=== PATIENT | female | born 1960 | race Caucasian/White ===

== ENCOUNTER 2018-12-16 06:09 | Emergency (ER) | payer OTHER ==
[~2018-12-16] VITALS: Ht 167.6 cm; Wt 113.4 kg
[~2018-12-16 06:09] MED LIST: ALBUTEROL2.5 MG/0.5 INH; AZITHROMYCIN 2250 MG PO; BLACK COHOSH540 MG PO; CEFDINIR300 MG PO; CELEXA 20 MG TA20 MG PO; FLONASE 0.05%50 MCG NASAL; FLUTICASONE PRO30 G1; GLUCOPHAGE500 MG PO; IBUPROFEN 600600 M1 PO; LANTUS100 UNIT/M SUBQ; LASIX 80 MG TAB80 MG PO; MULTIVITAMINS1 EAC7 PO; NORCO 5-325 TA1 EACH PO; OMEPRAZOLE 20 M20 MG PO; POTASSIUM20 PO; SYMBICORT; SYMBICORT80 MCG/4.1; SYNTHROID125 MCG PO; VENTOLIN HFA 1818 GM INH; VENTOLIN HFA INH8 GM; VIT B; ZOCOR5 MG PO
[2018-12-16 06:53] LABS: ABSOLUTE NEUTROPHILS 6.5 thou/uL (1.4-8.2); BASOPHILS 0.4 % (0.0-2.0); EOSINOPHILS 0.2 % (0.0-3.0); HEMATOCRIT 29.4 % (37.0-47.0); HEMOGLOBIN 9.2 gm/dL (12.0-15.0); LYMPHOCYTES 8.8 % (24.0-44.0); MCH 24.2 pg (26.0-34.0); MCHC 31.3 g/dL (28.0-37.0); MCV 77.2 fL (80.0-100.0); PLATELET COUNT 336 thou/uL (150-400); POLYS 85.6 % (36.0-66.0); RBC 3.81 mil/uL (4.20-5.00); WBC 7.6 thou/uL (4.0-11.0)
[2018-12-16 07:04] LABS: ANION GAP 20 mmol/L (7-16); BUN 20 mg/dL (7-18); CALCIUM 10.1 mg/dL (8.5-10.1); CHLORIDE 101 mmol/L (98-107); CO2 20 mmol/L (21-32); CREATININE 1.4 mg/dL (0.6-1.0); GLUCOSE 210 mg/dL (74-106); POTASSIUM 3.2 mmol/L (3.5-5.1); SODIUM 141 mmol/L (136-145)
[2018-12-16 07:13] LABS: ALBUMIN 4.1 g/dL (3.4-5.0); LIPASE 122 U/L (73-393); SGOT 16 U/L (15-37); SGPT 20 U/L (30-65); TOTAL BILIRUBIN 0.5 mg/dL (<0.1-1.0); TOTAL PROTEIN 7.9 g/dL (6.4-8.2); TROPONIN-I <0.06 ng/mL (<0.06)
[2018-12-16 07:44] LABS: URINE BILIRUBIN NEGATIVE (Negative); URINE BLOOD 1+ (Negative); URINE CLARITY CLEAR; URINE COLOR YELLOW; URINE GLUCOSE-RANDOM* NEGATIVE (Negative); URINE KETONES 1+ (Negative); URINE LEUKOCYTES-REFLEX NEGATIVE (Negative); URINE NITRITE-REFLEX NEGATIVE (Negative); URINE PROTEIN (DIPSTICK) NEGATIVE (Negative); URINE UROBILINOGEN 0.2 E.U./dl (0.2-1.0)
--- NOTE | 2018-12-16 08:25 | EKG ---
[place] [address] [facility] [place] [address] ELECTROCARDIOGRAM REPORT Name: HYUNGENIE SHEYLA Room #: [facility]#: [id number] ������������������ Admission: 12/16/18 ������������������ Attend Phys: Discharge: ������������������ Date of : 56 Report #: [id number] ����������������������������������������������������������������� [id number] THIS REPORT FOR: //name// [facility] ED Test Date: 2018-12-16 Test Time: 06:24:46 Pat Name: GENIE PURVIS Department: Room: Gender: F Lumber Salvager: alida : 1960 Requested By: Praveen Kumar Order Number: [id number] MD: Jerald Coe Measurements Intervals [place] Rate: 68 P: -2 MN: 190 QRS: -6 QRSD: 114 T: 18 QT: 470 QTc: 500 Interpretive Statements Sinus rhythm Probable left ventricular hypertrophy Compared to ECG 04/04/2016 22:35:05 No significant changes Electronically Signed On 12-16-2018 8:25:32 CDT by Jerald Coe [email or web address] ��������������������������������������������� <ELECTRONICALLY SIGNED> ���������������������������������������� By: Jerald Coe MD ��������������������������������������������� 12/16/18 0825 0624 3 Jerald Coe MD /APOLLO
[2018-12-16 08:35] LABS: CASTS None Seen /LPF (None Seen); CRYSTALS None Seen /LPF (None Seen); SQUAMOUS 0-3 Few /LPF (0-3)
[2018-12-16 08:36] LABS: URINE WBC-REFLEX 0-5 Rare /HPF (0-5)
[2018-12-16 08:37] LABS: BACTERIA-REFLEX 1-9 Few /HPF (None Seen); URINE RBC 0-2 Rare /HPF (0-2)
[2018-12-16 09:31] VITALS: BP 197/102
== END 2018-12-16 09:39 | disposition home or self-care (01) ==
LOC: ER 06:09
PROVIDERS: Emergency Medicine
DX: K52.9 Noninfective gastroenteritis and colitis, unspecified (principal); E03.9 Hypothyroidism, unspecified; J42 Unspecified chronic bronchitis; M19.90 Unspecified osteoarthritis, unspecified site; K21.9 Gastro-esophageal reflux disease without esophagitis; E11.9 Type 2 diabetes mellitus without complications; Z85.048 Personal history of other malignant neoplasm of rectum, rectosigmoid junction, and anus; Z87.891 Personal history of nicotine dependence; Z88.0 Allergy status to penicillin

== ENCOUNTER 2020-04-24 18:57 | Emergency (ER) | payer OTHER ==
[~2020-04-24] VITALS: Ht 167.6 cm; Wt 99.8 kg
[2020-04-24 20:11] LABS: ABSOLUTE NEUTROPHILS 9.8 thou/uL (1.4-8.2); BASOPHILS 0.2 % (0.0-2.0); HEMATOCRIT 35.5 % (37.0-47.0); LYMPHOCYTES 7.6 % (24.0-44.0); MCH 29.7 pg (26.0-34.0); MCHC 33.7 g/dL (28.0-37.0); MCV 88.1 fL (80.0-100.0); MONOCYTES 7.1 % (1.0-8.0); PLATELET COUNT 397 thou/uL (150-400); POLYS 85.1 % (36.0-66.0); RBC 4.03 mil/uL (4.20-5.00); WBC 11.5 thou/uL (4.0-11.0)
[2020-04-24 20:27] LABS: ALBUMIN 4.3 g/dL (3.4-5.0); CALCIUM 10.3 mg/dL (8.5-10.1); CREATININE 1.3 mg/dL (0.6-1.0); DIRECT BILIRUBIN 0.1 mg/dL (<0.1-0.2); TOTAL BILIRUBIN 0.7 mg/dL (0.2-1.0); TOTAL PROTEIN 8.6 g/dL (6.4-8.2)
[2020-04-24 20:28] LABS: POTASSIUM 2.8 mmol/L (3.5-5.1)
[2020-04-24 23:44] VITALS: BP 127/59
[2020-04-25] MEDS ORDERED: ZOFRAN ODT4 MG PO (00:17)
== END 2020-04-25 00:24 | disposition home or self-care (01) ==
LOC: ER 18:57
PROVIDERS: Emergency Medicine
DX: R11.2 Nausea with vomiting, unspecified (principal); J44.9 Chronic obstructive pulmonary disease, unspecified; E03.9 Hypothyroidism, unspecified; K21.9 Gastro-esophageal reflux disease without esophagitis; E11.9 Type 2 diabetes mellitus without complications; Z79.4 Long term (current) use of insulin; Z79.899 Other long term (current) drug therapy; Z87.891 Personal history of nicotine dependence; Z88.0 Allergy status to penicillin

== ENCOUNTER 2020-06-02 22:19 | Emergency (ER) | payer OTHER ==
[~2020-06-02] VITALS: Ht 167.6 cm; Wt 97.7 kg
[~2020-06-02 22:19] MED LIST changes: +SYNTHROID125 MC1 PO; -SYNTHROID125 MCG PO; +ZOFRAN ODT4 MG PO
[2020-06-02 22:56] LABS: ABSOLUTE NEUTROPHILS 8.6 thou/uL (1.4-8.2); BASOPHILS 0.3 % (0.0-2.0); HEMATOCRIT 33.3 % (37.0-47.0); HEMOGLOBIN 11.3 gm/dL (12.0-15.0); LYMPHOCYTES 6.9 % (24.0-44.0); MCH 29.8 pg (26.0-34.0); MCV 87.6 fL (80.0-100.0); MONOCYTES 4.4 % (1.0-8.0); PLATELET COUNT 323 thou/uL (150-400); POLYS 88.4 % (36.0-66.0); RDW 13.8 % (10.5-14.5); WBC 9.8 thou/uL (4.0-11.0)
[2020-06-02 23:04] LABS: ANION GAP 18 mmol/L (7-16); BUN 22 mg/dL (7-18); CALCIUM 9.9 mg/dL (8.5-10.1); CHLORIDE 96 mmol/L (98-107); CO2 22 mmol/L (21-32); CREATININE 1.4 mg/dL (0.6-1.0); GLUCOSE 159 mg/dL (74-106); POTASSIUM 3.2 mmol/L (3.5-5.1); SODIUM 136 mmol/L (136-145)
[2020-06-02 23:08] LABS: URINE BILIRUBIN NEGATIVE (Negative); URINE BLOOD NEGATIVE (Negative); URINE CLARITY CLEAR; URINE COLOR YELLOW; URINE GLUCOSE-RANDOM* NEGATIVE (Negative); URINE KETONES 2+ (Negative); URINE LEUKOCYTES-REFLEX NEGATIVE (Negative); URINE NITRITE-REFLEX NEGATIVE (Negative); URINE PROTEIN (DIPSTICK) NEGATIVE (Negative); URINE SPECIFIC GRAVITY 1.015 (1.005-1.035); URINE UROBILINOGEN 0.2 E.U./dl (0.2-1.0)
[2020-06-02 23:15] LABS: LIPASE 151 U/L (73-393); MAGNESIUM 1.5 mg/dL (1.8-2.4); SGOT 19 U/L (15-37); SGPT 14 U/L (30-65); TOTAL BILIRUBIN 0.5 mg/dL (0.2-1.0); TOTAL PROTEIN 8.4 g/dL (6.4-8.2); TROPONIN-I <0.06 ng/mL (<0.06)
[2020-06-02] MEDS ORDERED: HYDROCODON-ACE1 EAC8 PO (23:37)
[2020-06-02] MEDS ORDERED: ALPRAZOLAM 0.0.25 M1 PO (23:38)
[2020-06-02] MEDS ORDERED: SYMBICORT160 MCG/4. INH (23:40)
[2020-06-02] MEDS ORDERED: VENTOLIN HFA 1818 GM INH (23:41)
[2020-06-03 00:32] VITALS: BP 147/86
[2020-06-03] MEDS ORDERED: ONDANSETRON ODT8 MG PO (00:45)
[2020-06-03] MEDS ORDERED: MAG-OXIDE400 MG PO (00:45)
== END 2020-06-03 01:16 | disposition home or self-care (01) ==
LOC: ER 22:19
PROVIDERS: Emergency Medicine
DX: J44.9 Chronic obstructive pulmonary disease, unspecified (principal); E86.0 Dehydration; E03.9 Hypothyroidism, unspecified; K21.9 Gastro-esophageal reflux disease without esophagitis; E11.22 Type 2 diabetes mellitus with diabetic chronic kidney disease; N18.9 Chronic kidney disease, unspecified; Z79.899 Other long term (current) drug therapy; Z88.0 Allergy status to penicillin; Z87.891 Personal history of nicotine dependence; Z20.828 Contact with and (suspected) exposure to other viral communicable diseases

== ENCOUNTER 2020-11-18 21:16 | Inpatient (IN) | payer OTHER ==
[~2020-11-18] VITALS: Ht 167.6 cm; Wt 77.5 kg
[~2020-11-18 21:16] MED LIST changes: +ALPRAZOLAM 0.0.25 M1 PO; +HYDROCODON-ACE1 EAC8 PO; +MAG-OXIDE400 MG PO; +ONDANSETRON ODT8 MG PO; +SYMBICORT160 MCG/4. INH
[2020-11-18 21:18] VITALS: BP 157/94
[2020-11-18 22:20] LABS: ABSOLUTE NEUTROPHILS 8.5 thou/uL (1.4-8.2); BASOPHILS 0.3 % (0.0-2.0); EOSINOPHILS 0.1 % (0.0-3.0); HEMATOCRIT 29.9 % (37.0-47.0); LYMPHOCYTES 9.4 % (24.0-44.0); MCH 29.4 pg (26.0-34.0); MCHC 33.3 g/dL (28.0-37.0); MCV 88.4 fL (80.0-100.0); MONOCYTES 8.1 % (1.0-8.0); PLATELET COUNT 602 thou/uL (150-400); POLYS 82.1 % (36.0-66.0); RBC 3.39 mil/uL (4.20-5.00); RDW 15.2 % (10.5-14.5); WBC 10.3 thou/uL (4.0-11.0)
[2020-11-18 22:43] LABS: ALBUMIN 2.9 g/dL (3.4-5.0); CALCIUM 9.6 mg/dL (8.5-10.1); CREATININE 2.7 mg/dL (0.6-1.0); TOTAL BILIRUBIN 0.5 mg/dL (0.2-1.0); TOTAL PROTEIN 7.5 g/dL (6.4-8.2)
[2020-11-18 22:45] LABS: POTASSIUM 2.5 mmol/L (3.5-5.1)
[2020-11-18 22:45] LABS: URINE BILIRUBIN NEGATIVE (Negative); URINE BLOOD TRACE (Negative); URINE CLARITY CLEAR; URINE COLOR YELLOW; URINE GLUCOSE-RANDOM* NEGATIVE (Negative); URINE KETONES 1+ (Negative); URINE LEUKOCYTES-REFLEX TRACE (Negative); URINE NITRITE-REFLEX NEGATIVE (Negative); URINE PROTEIN (DIPSTICK) TRACE (Negative); URINE UROBILINOGEN 0.2 E.U./dl (0.2-1.0)
[2020-11-19] VITALS (7 sets, daily range): BP systolic 117–164; BP diastolic 69–91
--- NOTE | 2020-11-19 04:57 | NUR ---
Admission history and assessments completed. Careplan initiated. IVfluids infusing. Ice chips given sparingly. Potassium and magnesium being replaced. Vital signs and rhythm stable. COVID negative. Patient straight caths self, daughter to bring in more supplies. Colostomy intact.
--- NOTE | 2020-11-19 07:28 | EKG ---
[address] [place] [address] ELECTROCARDIOGRAM REPORT Name: GENIE PURVIS SHEYLA Room #: 354-P ADM IN M.R.#: [id number] Admission: 11/19/20 Attend Phys: Kobe Taylor MD Discharge: Date of : 56 Report #: [id number] [facility] Test Date: 2020-11-18 Test Time: 23:30:01 Pat Name: GENIE PURVIS Department: Room: 354 Gender: F Nutrition Intern: SOWMYA : 1960 Requested By: Kathi Lynne Order Number: [id number] MD: Chandrakant Tello Measurements Intervals [place] Rate: 105 P: 76 NV: 165 QRS: 15 QRSD: 104 T: 32 QT: 381 QTc: 504 Interpretive Statements Sinus tachycardia Borderline repolarization abnormality Prolonged QT interval Baseline wander in lead(s) V3 Compared to ECG 12/16/2018 06:24:46 Prolonged QT interval now present Sinus rhythm no longer present Electronically Signed On 11-19-2020 7:27:56 CDT by Chandrakant Tello [email or web address] <ELECTRONICALLY SIGNED> By: Chandrakant Tello MD, [facility] 11/19/20 0727 2330 Chandrakant Tello MD, [facility] /EPI
[2020-11-19 08:17] LABS: HEMATOCRIT 24.6 % (37.0-47.0); HEMOGLOBIN 8.1 gm/dL (12.0-15.0); MCH 29.3 pg (26.0-34.0); MCHC 32.8 g/dL (28.0-37.0); MCV 89.3 fL (80.0-100.0); RBC 2.76 mil/uL (4.20-5.00); RDW 15.5 % (10.5-14.5); WBC 9.5 thou/uL (4.0-11.0)
[2020-11-19 08:18] LABS: CALCIUM 8.4 mg/dL (8.5-10.1); CREATININE 2.4 mg/dL (0.6-1.0)
[2020-11-19 08:24] LABS: POTASSIUM 2.6 mmol/L (3.5-5.1)
--- NOTE | 2020-11-19 13:53 | NUR ---
INITIAL ASSESSMENT: Received consult. SW reviewed chart and spoke with nursing and attending physician. Pt was admitted from home due to abdominal pain/hypokalemia. Pt placed in Enhanced Isolation to r/o COVID. Test on 11/18 was negative. Pt is on IV abx. Pt with hx of bladder cancer. Pt straight caths herself at home. SW met with pt at bedside. Introduced role of SW. Pt is alert/orientated x 4. Pt reports she lives at home with her family. Pt states she uses a walker for ambulation. Pt has used HH in the past, but unsure name of provider. No hx of post-acute placement. Pt's PCP is Dr. Brandon Persaud. Plan is for pt to discharge home when medically stable. SW is following to assist as needed with discharge planning.
--- NOTE | 2020-11-19 17:58 | NUR ---
assumed care of pt at 0700. pt alert and oriented, in no acute distress. complains of pain to abd - pain controlled with current med regimen. up w/ walker and sba to br. self caths. dtr at bedside. liquid diet. cdif results positive. special precautions in place. tolerating liquid diet well.
[2020-11-20 03:26] VITALS: BP 136/74
[2020-11-20 05:29] LABS: CALCIUM 7.8 mg/dL (8.5-10.1); CREATININE 2.3 mg/dL (0.6-1.0); POTASSIUM 3.5 mmol/L (3.5-5.1)
[2020-11-20 05:47] LABS: HEMATOCRIT 22.3 % (37.0-47.0); HEMOGLOBIN 7.4 gm/dL (12.0-15.0); MCH 29.6 pg (26.0-34.0); MCV 89.8 fL (80.0-100.0); RBC 2.49 mil/uL (4.20-5.00); RDW 15.2 % (10.5-14.5); WBC 7.3 thou/uL (4.0-11.0)
[2020-11-20 07:39] VITALS: BP 157/94
--- NOTE | 2020-11-20 10:03 | NUR ---
OSTOMY CARE; ALERT.AWAKE, PLEASANT, STATES SHE DID NOT BRING OSTOMY SUPPLIES TO HOSP AND POUCH HAS BEEN ON 5 DAYS, CHANGE APPLIANCE W/ RIDDHI CUT TO FIT POUCH, ADAPT RING UNDER WAFER, STOMA PINK, VIABLE, BUDDED. PERISTOMAL SKIN INTACT, LOOSE BROWN STOOL NOTED, SUPPLIES PLACE AT BS RECOMMENDATIONS; CHANGE POUCH Q 3-5DAYS AND PRN, EMPTY PRN KINDER TEACHER AWARE
--- NOTE | 2020-11-20 16:19 | NUR ---
Pt transfered to unit per bed from [facility] before the beginning of shift in stable condition.Assessment completed.vss. pt in isolation for cdiff. Meds given as ordered and well tolerated with breakfast.Pt c/o buttock pain rated 7/10.Fentanyl ivp given with partial relief.Dr Taylor here,stated that pt will be dc home in am.Ostomy nurse changed ostomy bag today and gave pt some supplies for home use.Pt st cath self as needed in the bathroom.No verbal c/o at present.Will continue to monitor.
[2020-11-20 17:28] VITALS: BP 150/84
[2020-11-20 17:44] VITALS: BP 125/90
[2020-11-20 20:12] VITALS: BP 136/80
--- NOTE | 2020-11-21 04:17 | NUR ---
PT IS A/O X4 AND IS UP AD JUAN, SBA WHILE IV CONNECTED. ROOM AIR. SR/1ST AVB ON THE MONITOR. SELF CATHETERIZES DUE TO HX OF BLADDER CANCER. ASSISTED X1 AT PT REQUEST. CURRENTLY ON C-DIFF ISOLATION. COLOSTOMY IN PLACE AND DRAINING A VERY SMALL AMOUNT OF DARK LOOSE STOOL. C/O PAIN TO BUTTOCKS AND IS REQUESTING PRN PAIN MEDICATIONS ON A REGULAR AROUND THE CLOCK BASIS. GIVEN DIRECTED. IV LEAKING AND HAD ROTATED TO LEFT AC. REMOVED WITH CATHETER INTACT AND REPLACED TO LEFT FA. CALLS OUT APPROPRIATELY AND IS PROGRESSING TOWARDS PLAN OF CARE DC GOALS. WILL CONTINUE TO MONITOR.
[2020-11-21 05:15] VITALS: BP 136/78
[2020-11-21 08:03] VITALS: BP 134/76
[2020-11-21 08:25] VITALS: BP 134/76
--- NOTE | 2020-11-21 11:54 | NUR ---
PT ROUNDS UPDATE: PT HAS CDIFF AND UNCONTROLLED PX. THE PLAN IS FOR PT TO D/C HOME.
[2020-11-21 17:00] VITALS: BP 137/77
--- NOTE | 2020-11-21 18:21 | NUR ---
PT CARE ASSUMED AT 0700. ASSESSMENTS CHARTED. MEDICATIONS CHARTED. LFA IV. SINUS RHYTHM. PT SELF CATHS. ISOLATION; C DIFF. UP AD JUAN. COVID NEGATIVE. PT IS [place] IN RT EAR.
[2020-11-21 20:00] VITALS: BP 155/87
--- NOTE | 2020-11-22 04:49 | NUR ---
Pt. rested quietly at intervals during the night when checked on during frequent rounds. She has been given pain meds for c/o pain to her bottom area (see emar) with some relief noted. Pt. assisted with straight caths as she does this at home. Bed alarm is on.
[2020-11-22 06:18] LABS: HEMOGLOBIN 7.8 gm/dL (12.0-15.0); MCH 29.9 pg (26.0-34.0); MCHC 32.6 g/dL (28.0-37.0); MCV 91.6 fL (80.0-100.0); RBC 2.62 mil/uL (4.20-5.00); RDW 15.5 % (10.5-14.5); WBC 7.3 thou/uL (4.0-11.0)
[2020-11-22 06:40] LABS: CALCIUM 8.4 mg/dL (8.5-10.1); CREATININE 2.4 mg/dL (0.6-1.0); POTASSIUM 3.6 mmol/L (3.5-5.1); TOTAL BILIRUBIN 0.3 mg/dL (0.2-1.0); TOTAL PROTEIN 5.6 g/dL (6.4-8.2)
[2020-11-22 07:19] VITALS: BP 158/77
--- NOTE | 2020-11-22 10:58 | NUR ---
ON-GOING ASSESSMENT: CM REVIEWED CHART AND SPOKE WITH PATIENT. PT IS DISCHARGING HOME TODAY. PT REPORTS SHE Has no NEEDS FROM CM AND HAS ALL EQUIPTMENT AT HOME NEEDED. PT STATES HER AND DAUGHTER CAN HELP HER WITH ANYTHING IF NEEDED AND DOES NOT FEEL SHE NEEDS HH. PT REPORTS SHE WILL HAVE TRANSPORTATION HOME. PT IS DISCHARGING WITH NO NEEDS.
[2020-11-22] MEDS ORDERED: HYDROCODON-ACE1 EAC8 PO (11:25)
[2020-11-22] MEDS ORDERED: VANCOMYCIN HCL125 MG PO (11:25)
[2020-11-22 12:53] VITALS: BP 158/77
[2020-11-22 14:20] VITALS: BP 141/86
--- NOTE | 2020-11-22 16:37 | NUR ---
Received awake on bed. Due medications given as prescribed, able to swallow meds w/o difficulty. On telemetry; no complains and signs of chest pain, crushing sensation and heaviness. Assisted in ADLs. Vital signs stable. On room air.On regular diet- tolerating well; no nausea, no vomiting and no abdominal pain noted. On blood sugar monitoring, taken and recorded accordingly; with sliding scale insulin ordered. With colostomy in place- draining well; output measured and recorded accordingly. With recent diagnosis of bladder cancer- assisted in using straight catheter- output measured and recorded accordingly. With SL at L FA- intact. Complained of pain, due PRN PO pain meds given as prescribed. Falls bundle in place. Pt seen and examined by Dr Taylor this AM, for discharge today, a/w physician to complete discharge orders. Discharge instructions, follow up schedule given and instructed, acknowledged understanding- Discharge forms signed. IV discontinued. Telemetry stopped, monitor returned. Pt fetched by her daughter. Brought out of the unit via wheelchair with her personal belongings. Patient discharged.
== END 2020-11-22 14:00 | disposition home or self-care (01) | DRG 371 ==
LOC: ER 21:16 → 3W 11-19 00:40 → EROBS 11-19 00:40 → 4W 11-19 00:40 → 3W 11-19 01:17 → 4W 11-20 06:33
PROVIDERS: Nurse Practitioner; Nurse Practitioner Family; ADMIT Hospitalist; ATTEND Hospitalist
DX: A04.72 Enterocolitis due to Clostridium difficile, not specified as recurrent (principal); R65.11 Systemic inflammatory response syndrome (SIRS) of non-infectious origin with acute organ dysfunction; N17.0 Acute kidney failure with tubular necrosis; K80.00 Calculus of gallbladder with acute cholecystitis without obstruction; J45.909 Unspecified asthma, uncomplicated; Z20.822 Contact with and (suspected) exposure to COVID-19; E03.9 Hypothyroidism, unspecified; M19.90 Unspecified osteoarthritis, unspecified site; J44.9 Chronic obstructive pulmonary disease, unspecified; K21.9 Gastro-esophageal reflux disease without esophagitis; E11.9 Type 2 diabetes mellitus without complications; F32.9 Major depressive disorder, single episode, unspecified; E87.6 Hypokalemia; Z85.048 Personal history of other malignant neoplasm of rectum, rectosigmoid junction, and anus; Z85.51 Personal history of malignant neoplasm of bladder; Z88.0 Allergy status to penicillin; Z87.891 Personal history of nicotine dependence; Z92.21 Personal history of antineoplastic chemotherapy; Z92.3 Personal history of irradiation; Z93.3 Colostomy status; Z83.79 Family history of other diseases of the digestive system
CPT/HCPCS: 10045; 10879

== ENCOUNTER 2020-12-03 18:14 | Inpatient (IN) | payer OTHER ==
[~2020-12-03] VITALS: Ht 167.6 cm; Wt 77.5 kg
--- NOTE | ~2020-12-03 | O ---
[facility] [place] [address] OPERATIVE REPORT Name: GENIE PURVIS Room #: 458-P ADM IN M.R.#: [id number] Admission: 12/03/20 Attend Phys: Andrea Elena MD Discharge: Date of : 56 Report #: [id number] THIS REPORT FOR: cc: Brandon Persaud MD, Douglas James MD Patterson,eTe Mares MD ~ DATE OF SERVICE: 12/08/2020 PREOPERATIVE DIAGNOSIS: Small-bowel obstruction. POSTOPERATIVE DIAGNOSIS: Small-bowel obstruction. OPERATION: Exploratory laparotomy with small-bowel resection and loop ileostomy. SURGEON: Tee Magallon MD. ANESTHESIA: General. ESTIMATED BLOOD LOSS: 50 mL. SPECIMEN: Small bowel. DESCRIPTION OF PROCEDURE: After informed consent was obtained, the patient was brought to the operating room and placed supine. SCDs were placed and working, preoperative antibiotics were administered, general anesthesia was induced. The abdomen was prepped and draped in the usual sterile fashion. Midline laparotomy incision was made over the previous laparotomy incision. Cautery dissection was made down to the fascia. There had been a previous hernia repair and there was incorporated mesh. Fascia was incised. There was dilated small bowel throughout the abdomen. Almost all of the small bowel was dilated. There was an adhesive band of omentum that was adhered down to the pelvis that was creating a tunnel. This was ligated with the LigaSure. I then ran the small bowel. The small bowel was completely dilated all the way down to the pelvis. It was stuck down to the pelvis. Approximately 50 cm from the cecum, there was an area of nodularity on the small bowel with a 4 mm wide implant in the mesentery. Given her history, I thought this required resection. Therefore, it was stapled distally and proximally. LigaSure was used to ligate the mesentery to take the area of nodularity in the small bowel and the mesenteric nodule. I did not feel it would be safe to dissect down into the pelvis in the irradiated region, which was completely matted and stuck down. I therefore elected to bring out a loop ileostomy. Both of the ends of the small bowel were then brought out through a hole in the right side of the abdomen through the rectus fascia. [address] [address] OPERATIVE REPORT Name: GENIE PURVIS SHEYLA Room #: 458-P [facility] IN .R.#: [id number] Admission: 12/03/20 Attend Phys: Andrea Elena MD Discharge: Date of : 56 Report #: [id number] The fascia was then closed with #1 looped PDS. Skin was closed with eduarda. I then opened up both ends of the small bowel. They were sutured together and then a loop ileostomy was performed using 4-0 Vicryl suture. An ostomy appliance was placed. Sterile dressings were applied. COMPLICATIONS: None. DISPOSITION: The patient was taken to recovery in satisfactory condition. By: 1409 1454 Tee Magallon MD /nt
[~2020-12-03 18:14] MED LIST changes: +VANCOMYCIN HCL125 MG PO
[2020-12-03 18:23] VITALS: BP 143/99
[2020-12-03 19:44] LABS: ABSOLUTE NEUTROPHILS 9.5 thou/uL (1.4-8.2); BASOPHILS 0.3 % (0.0-2.0); EOSINOPHILS 0.6 % (0.0-3.0); HEMATOCRIT 25.6 % (37.0-47.0); HEMOGLOBIN 8.5 gm/dL (12.0-15.0); LYMPHOCYTES 5.6 % (24.0-44.0); MCH 29.8 pg (26.0-34.0); MCHC 33.2 g/dL (28.0-37.0); MCV 89.6 fL (80.0-100.0); MONOCYTES 5.4 % (1.0-8.0); PLATELET COUNT 547 thou/uL (150-400); POLYS 88.1 % (36.0-66.0); RBC 2.85 mil/uL (4.20-5.00); RDW 15.6 % (10.5-14.5); WBC 10.8 thou/uL (4.0-11.0)
[2020-12-03 19:56] LABS: CALCIUM 9.2 mg/dL (8.5-10.1); CREATININE 3.8 mg/dL (0.6-1.0)
[2020-12-03 20:02] LABS: ALBUMIN 2.9 g/dL (3.4-5.0); TOTAL BILIRUBIN 0.4 mg/dL (0.2-1.0); TOTAL PROTEIN 7.4 g/dL (6.4-8.2)
[2020-12-03 21:24] VITALS: BP 126/74
[2020-12-03 22:11] VITALS: BP 135/77
--- NOTE | 2020-12-04 01:19 | NUR ---
Pt admitted from ED approx 2200 with SBO. A/OX4,VSS.Up with A//,has a limp gait on the right side d/t neuropathy. Had an episode of emesis on arrival,brownish in color,c/o pain to abd as well medicated per EMAR with relief reported. NG patent to right nare connected to LIS brownish drainage observed,abd distended but reports feeling much better after the amount suctioned out. Chavez patent to DD with yellow urine,colostomy in place with no output. Reports last BM was a week ago. 2nd IV started on LFA,Mag/KCL/IVF infusing w/o any problems voiced. Fall precautions in place,fall safety reinforced agrees to call for help before getting up. Sinus tachy on telemetry. Will continue to monitor pt.
[2020-12-04 05:20] LABS: HEMATOCRIT 22.6 % (37.0-47.0); HEMOGLOBIN 7.5 gm/dL (12.0-15.0); MCH 29.8 pg (26.0-34.0); MCHC 33.1 g/dL (28.0-37.0); MCV 90.1 fL (80.0-100.0); RBC 2.51 mil/uL (4.20-5.00); RDW 15.9 % (10.5-14.5); WBC 11.7 thou/uL (4.0-11.0)
[2020-12-04 05:42] LABS: CALCIUM 8.5 mg/dL (8.5-10.1); CREATININE 3.6 mg/dL (0.6-1.0); POTASSIUM 3.7 mmol/L (3.5-5.1)
[2020-12-04 05:50] LABS: URINE BILIRUBIN NEGATIVE (Negative); URINE BLOOD 1+ (Negative); URINE CLARITY CLEAR; URINE COLOR YELLOW; URINE GLUCOSE-RANDOM* NEGATIVE (Negative); URINE KETONES NEGATIVE (Negative); URINE NITRITE-REFLEX NEGATIVE (Negative); URINE PROTEIN (DIPSTICK) 1+ (Negative); URINE SPECIFIC GRAVITY 1.015 (1.005-1.035); URINE UROBILINOGEN 0.2 E.U./dl (0.2-1.0)
[2020-12-04 05:56] LABS: URINE LEUKOCYTES-REFLEX 1+ (Negative)
[2020-12-04 06:33] LABS: SQUAMOUS 0-3 Few /LPF (0-3)
[2020-12-04 06:34] LABS: CASTS None Seen /LPF (None Seen); CRYSTALS None Seen /LPF (None Seen); TRANSITIONAL EPITHEL CELL 0-3 Few /LPF (None Seen); URINE RBC 3-10 Few /HPF (0-2); URINE WBC-REFLEX 6-15 Few /HPF (0-5)
[2020-12-04 06:35] LABS: BACTERIA-REFLEX 1-9 Few /HPF (None Seen)
--- NOTE | 2020-12-04 07:04 | EKG ---
[address] [employer] [place] [address] ELECTROCARDIOGRAM REPORT Name: GENIE PURVIS Room #: 458-P ADM IN M.R.#: [id number] Admission: 12/03/20 Attend Phys: Alan Waterman MD Discharge: Date of : 56 Report #: [id number] [facility] ED Test Date: 2020-12-03 Test Time: 19:20:25 Pat Name: GENIE PURVIS Department: Room: [facility] Gender: F Pharmacy Informatics Manager: UNKNOWN : 1960 Requested By: Carlos Negron Order Number: [id number] MD: Chandrakant Tello Measurements Intervals [place] Rate: 106 P: 61 DC: 178 QRS: 0 QRSD: 97 T: 67 QT: 356 QTc: 473 Interpretive Statements Sinus tachycardia Baseline wander in lead(s) V2,V5,V6 Compared to ECG 11/18/2020 23:30:01 Prolonged QT interval no longer present Electronically Signed On 12-04-2020 7:04:07 CDT by Chandrakant Tello [email or web address] <ELECTRONICALLY SIGNED> By: Chandrakant Tello MD, [facility] 12/04/20 0704 19 19 Chandrakant Tello MD, [facility] /EPI
[2020-12-04 07:50] VITALS: BP 125/71
--- NOTE | 2020-12-04 10:27 | NUR ---
OSTOMY CARE; ALERT, PLEASANT, STATES SHE DID NOT BRING OSTOMY SUPPLIES TO HOSP AND NEEDING ASSIST TO CHANGE POUCH, STOMA PINK VIABLE, SLIGHTLY BUDDED, PERISTOMAL SKIN INTACT, LOOSE BROWN STOOL NOTED, NEW POUCH RIDDHI 2 PIECE SYSTEM W/ ADAPT RING APPLIED, SUPPLIES PLACED AT BS RECOMMENDATIONS; CHANGE POUCH Q 3-5 DAYS AND PRN, EMPTY PRN SENIOR WEB DEVELOPER AWARE
--- NOTE | 2020-12-04 11:27 | NUR ---
Case opened to follow for dc planning. Other Spatial Scientist visited with the pt at bedside and chart reviewed. The pt was recently here and dc'd to home with outpt f/u on 11/22/20. She has a new colostomy and reports she was doing well at home until it got obstructed. She lives at home with her spouse and is able to stay on the main level. Her dtr Ginny and son in law live in the basement and are there to help as needed. She has a cane,rwalker and bath bench and notes she is indep with gait,tx and adl's. She denies any dc concerns and feels her mobility is at baseline. Her pcp is Dr. Brandon Persaud. Cm role introduced. Will follow along should HH be indicated at dc. The pt notes she is feeling better and starting to have outpt. The salvage winder and inspector will see her today. Dc anticipated in 1-2 days.
--- NOTE | 2020-12-04 12:35 | NUR ---
Received awake on bed. Due medications given as prescribed, able to swallow meds w/o difficulty. On room air. On MS, not on telemetry; no complains and signs of chest pain, crushing sensation and heaviness. Assisted in ADLs. On nothing per orem- pt informed and aware; pt requested if she can have ice chips during Dr Yeung' rounds this AM- physician agreed- ice chips given to patient. With colostomy in place- output measured and recorded accordingly; pt seen and examined by ostomy nurse this AM- supplies provided at bedside. With NG tube at R nare- secured with tape; connected to LIS- output measured and recorded accordingly; pt seen and examined by Dr Yeung this AM, to clamp NG and check residual every 6 hrs, keep pt on NPO- pt updated. On blood sugar monitoring- taken and recorded accordingly; with sliding scale insulin ordered. Maintained on isolation due to Cdiff. With bloom in place, draining well; output measured and recorded accordingly. With NS at 100cc/hr, infusing well at L FA; with SL at L AC. Able to ambulate with assist of 1- Falls bundle in place. Complained of pain, due PRN pain meds given as prescribed. Pt seen and examined by Dr Elena this AM- updated re: Dr Yeung' plan. To continue monitoring patient.
[2020-12-04 14:43] VITALS: BP 132/78
[2020-12-04 20:11] VITALS: BP 131/80
[2020-12-05 05:13] LABS: HEMATOCRIT 22.1 % (37.0-47.0); HEMOGLOBIN 7.3 gm/dL (12.0-15.0); MCH 29.9 pg (26.0-34.0); MCHC 32.9 g/dL (28.0-37.0); MCV 90.9 fL (80.0-100.0); RBC 2.43 mil/uL (4.20-5.00); WBC 7.7 thou/uL (4.0-11.0)
[2020-12-05 05:49] LABS: CALCIUM 8.4 mg/dL (8.5-10.1); CREATININE 3.3 mg/dL (0.6-1.0); POTASSIUM 3.7 mmol/L (3.5-5.1)
--- NOTE | 2020-12-05 06:40 | NUR ---
AT APPROX. 0020 PT CALLED OUT VIA HER CALL LIGHT. THIS RN WAS HELPING ANOTHER PT SO KRISTIN CHATMAN WENT INTO THE PTS ROOM TO SEE WHAT SHE NEEDED. PT SAID SHE BELIEVED IT WAS TIME FOR MORE PAIN MEDS. THE RN SAID THAT SHE WAS NOT SURE IF IT WAS TIME BUT SHE WOULD LOOK INTO IT. THE PT THEN BECAME UPSET AND REACHED FOR HER PURSE, PULLING OUT MULTIPLE PILL BOTTLES INCLUDING OXYCODONE, HYDROCODONE AND ALPRAZOLAM. THE NURSE REQUESTED THAT THE PT GIVE ALL OF HER DIFFERENT MEDICATIONS TO HER SO THAT SHE COULD STORE THEM SAFELY IN OUR PHARMACY. LURDES THEN CAME TO THIS RN AND EXPLAINED THE EVENTS THAT HAD JUST OCCURED. AT THIS TIME I COLLECTED ALL THE MEDICATIONS AND PLACED THEM IN THE APPROPRIATE HOME MED BAG WHICH I LATER TOOK DOWN TO THE PHARMACY. AT APPROX 0130 THIS RN GOT A PHONE CALL FROM THE PTS DAUGHTER AND DPOAMARIO. SHE HAD RECENTLY RECIEVED A CALL FROM HER MOTHER GENIE. SHE ASKED ME TO EXPLAIN WHAT HAD JUST HAPPENED. I UPDATED HER ON THE SITUATION. MARIO THEN ASKED SEVERAL QUESTIONS ABOUT VISITING HOURS, WHEN SHE COULD SPEAK WITH THE PTS DOCTORS, AND IF SHE WAS ABLE TO RETRIEVE THESE MEDS FROM PHARMACY AND TAKE THEM HOME FOR HER MOTHER. I ADDRESSED ALL CONCERNS TO THE BEST OF MY ABILITY.
[2020-12-05 07:52] VITALS: BP 134/77
--- NOTE | 2020-12-05 16:10 | NUR ---
CARE TEAM INDICATED THAT PT IS PREGRESSING TOWARD GOAL OF DISCHARGE HOME. IT IS ANTICPATED THAT PT WILL LIKELY BE MEDICALLY STABLE TO DC HOME TOMORROW. CM FOLLOWING REGARDING DC NEEDS.
[2020-12-05 17:43] VITALS: BP 110/64
[2020-12-05 19:12] VITALS: BP 130/73
--- NOTE | 2020-12-05 19:17 | NUR ---
ASSUMED CARE OF PATIENT AT 0700 THIS MORNING. PT WAS ADMITTED FOR N/V AND SMALL IMPACTION OF THE BOWEL. PT HAS A COLOSTOMY AND HAS AN INDWELLING CATH DUE TO RETENTION. PT IS A/OX4, SKIN INTACT WITH NO TENTING, STOMA RED AND MOIST, DISTAL PULSES 2+ X4. EYES PERRLA, LUNGS CLEAR WITH LOWER TALAVERA DIMINISHED. 1X ASST TO RECLINER. ASSESSMENT OTHERWISE UNREMARKABLE. PT'S NG TUBE REMAINED CLAMPED WITHOUT ISSUES AND NO RESIDUAL. HCP GAVE ORDERS TO PLACE PT ON CLEAR FLUIDS AND MAY PROGRESS TO REGULAR DIET. PT POSSIBLE DISCHARGE TOMORROW, CALL LIGHT AND OTHER NEEDS PLACED WITHIN REACH.
[2020-12-05] MEDS ORDERED: PERCOCET 10-321 EAC1 PO (19:23)
[2020-12-05] MEDS ORDERED: NORCO7.5 PO (19:25)
--- NOTE | 2020-12-06 06:45 | NUR ---
Pt. rested quietly at intervals during the night when checked on during frequent rounds. She c/o chronic back pain and pain meds given with some relief noted. She also c/o some chest discomfort ecspecially upon deep breathing. No c/o shortness of air. She did have a pain pill (see emar) with some relief noted. Pt. also has been having frequent belching. Bed alarm is on.
[2020-12-06 08:20] VITALS: BP 116/61
[2020-12-06 11:41] LABS: ABSOLUTE NEUTROPHILS 5.2 thou/uL (1.4-8.2); BASOPHILS 0.3 % (0.0-2.0); EOSINOPHILS 0.1 % (0.0-3.0); HEMATOCRIT 22.8 % (37.0-47.0); HEMOGLOBIN 7.7 gm/dL (12.0-15.0); LYMPHOCYTES 8.4 % (24.0-44.0); MCH 30.6 pg (26.0-34.0); MCHC 33.7 g/dL (28.0-37.0); MCV 90.9 fL (80.0-100.0); MONOCYTES 16.4 % (1.0-8.0); PLATELET COUNT 432 thou/uL (150-400); POLYS 74.8 % (36.0-66.0); RDW 16.1 % (10.5-14.5)
[2020-12-06 11:57] VITALS: BP 114/55
[2020-12-06 11:57] LABS: ANION GAP 10 mmol/L (7-16); BUN 27 mg/dL (7-18); CALCIUM 8.1 mg/dL (8.5-10.1); CHLORIDE 103 mmol/L (98-107); CO2 22 mmol/L (21-32); GLUCOSE 124 mg/dL (74-106); POTASSIUM 3.2 mmol/L (3.5-5.1); SODIUM 135 mmol/L (136-145); TROPONIN-I <0.06 ng/mL (<0.06)
--- NOTE | 2020-12-06 13:02 | NUR ---
Received awake on bed. Due medications given as prescribed. On telemetry; no complains and signs of chest pain, crushing sensation and heaviness. On room air. Vital signs stable. On clear liquid diet- tolerating well; no nausea, no vomiting and no abdominal pain noted. On blood sugar monitoring, taken and recorded accordingly. With colostomy in place- output measured and recorded accordingly. With bloom in place- draining well; output measured and recorded accordingly. With NS at 100cc/hr, infusing well at L FA. Falls bundle in place. Pt complained of chest pain during Dr Elena's rounds this AM. EKG, chest xray and blood draw ordered- a/w results; EKG and chest xray results relayed to Dr Elena; no further orders. Complained of pain, due PRN pain meds given as prescribed- pt constantly complaining of meds and requesting to have meds earlier than prescribed- explained to her re: frequency and indication of pain meds. Encouraged ambulation and moving. To continue monitoring patient.
--- NOTE | 2020-12-06 14:53 | EKG ---
[address] [place] [address] ELECTROCARDIOGRAM REPORT Name: GENIE PURVIS SHEYLA Room #: 458- ADM IN M.R.#: [id number] Admission: 12/03/20 Attend Phys: Andrea Elena MD Discharge: Date of : 56 Report #: [id number] [facility] Test Date: 2020-12-06 Test Time: 09:14:41 Pat Name: GENIE PURVIS Department: Room: [facility] Gender: F Fusion Juncture Grinder: LEXII : 1960 Requested By: Andrea Elena Order Number: [id number] MD: Jerald Coe Measurements Intervals [place] Rate: 90 P: 75 GA: 171 QRS: 4 QRSD: 100 T: 39 QT: 384 QTc: 470 Interpretive Statements Sinus rhythm Borderline ST elevation, lateral leads Compared to ECG 12/03/2020 19:20:25 ST (T wave) deviation now present Sinus tachycardia no longer present Electronically Signed On 12-06-2020 14:52:55 CDT by Jerald Coe [email or web address] <ELECTRONICALLY SIGNED> By: Jerald Coe MD 12/06/20 1452 3 3 Jerald Coe MD /EPI
[2020-12-06 15:53] VITALS: BP 115/71
[2020-12-06 19:19] VITALS: BP 118/67
--- NOTE | 2020-12-07 03:09 | NUR ---
Pt. rested quietly at intervals during the night when checked on during frequent rounds. She did have a moderate amount of green colored emesis during the shift. Prn ivp zofran given with relief. She c/o back pain and pain meds given (see emar) with some relief noted. Bed alarm is on.
[2020-12-07 05:36] LABS: HEMATOCRIT 22.9 % (37.0-47.0); HEMOGLOBIN 7.5 gm/dL (12.0-15.0); MCH 29.5 pg (26.0-34.0); MCHC 32.6 g/dL (28.0-37.0); MCV 90.2 fL (80.0-100.0); RBC 2.54 mil/uL (4.20-5.00); RDW 15.9 % (10.5-14.5); WBC 7.4 thou/uL (4.0-11.0)
[2020-12-07 06:10] LABS: CALCIUM 8.2 mg/dL (8.5-10.1); CREATININE 2.8 mg/dL (0.6-1.0); POTASSIUM 3.3 mmol/L (3.5-5.1)
[2020-12-07 07:14] VITALS: BP 138/90
--- NOTE | 2020-12-07 11:23 | NUR ---
Received awake on bed. Due medications given as prescribed. On telemetry; no complains and signs of chest pain, crushing sensation and heaviness. Assisted in ADLs. On room air. Vital signs stable. On full liquid diet- tolerating well; Dr Elena informed that pt is tolerating diet, to review med rec and order which meds to resume. With colostomy in place- output measured and recorded accordingly; ostomy care provided. With bloom in place- output measured and recorded accordingly. With NS at 100cc/hr, infusing well at L FA. Complained of pain, due PRN pain meds given as prescribed. Pt reported that she vomitted last night approx 200cc- Dr Elena and Dr Magallon informed. To continue monitoring patient.
[2020-12-07 16:18] VITALS: BP 120/77
[2020-12-07 20:00] VITALS: BP 115/68
--- NOTE | 2020-12-08 08:33 | NUR ---
PT LYING IN BED. LORTAB AND OXY PROVIDING PAIN RELIEF. DENIES NAUSEA. RESTING COMFORTABLY. NO NEEDS VOICED. CALL LIGHT WITHIN REACH. FREQUENT OBSERVATION.
[2020-12-08 09:14] VITALS: BP 128/81
[2020-12-08 17:05] VITALS: BP 147/90
--- NOTE | 2020-12-08 20:18 | NUR ---
Assumed pt care this am, NPO, w/ NGT tune on left nare connected to a suction (low intermittent) draining dark green fluid. Colostomy on LLQ w/ light brown stool. No nausea or vomiting is noted. Went down for explore lap, came back late in the pm, mid line incision, dressing is c/d/i. right ileostomy was placed. Pt groggy but arousable. POC followed, endorsed to the night nurse.
--- NOTE | 2020-12-09 01:13 | NUR ---
ASSESSMENT COMPLETED. ALERT AND ORIENTED X 4. NG TO LIS ON LEFT NARE. PT GIVEN SOME HS MEDS WITH SMALL SIPS OF WATER-AFTER NG WAS CLAMPED. PT DENIES NAUSEA OR VOMITING, TAKING SMALL CHIPS OF ICE. PT GIVEN FENTANYL X1 FOR BREAKTHROUGH PAIN RIGHT ABOUT THE TIME SHE GOT HS MEDS. PAIN RELIEF OBTAINED.ORAL CARE PROVIDED COLOSTOMY WITH GREEN LIQUID OUTPUT, ILEOSTOMY WITH NO OUTPUT. TRACE EDEAM TO BLE, SCDS IN PLACE.MID ABDOMINAL DRSG WITH POST OP DRSG INTACT. NO FUERTHER CONCERNS AT THIS TIME. WILL CONTINUE WITH POC TILL EOS.
[2020-12-09 06:09] LABS: HEMOGLOBIN 8.9 gm/dL (12.0-15.0); MCHC 31.6 g/dL (28.0-37.0); MCV 91.9 fL (80.0-100.0); RBC 3.05 mil/uL (4.20-5.00); RDW 15.9 % (10.5-14.5); WBC 15.8 thou/uL (4.0-11.0)
[2020-12-09 06:38] LABS: CALCIUM 8.4 mg/dL (8.5-10.1); CREATININE 2.6 mg/dL (0.6-1.0); POTASSIUM 3.6 mmol/L (3.5-5.1)
[2020-12-09 08:05] VITALS: BP 142/81
--- NOTE | 2020-12-09 11:40 | NUR ---
PT IS POD #1 exploratory laparotomy with small bowel resection and loop ileostomy. Care team indicated they anticipate DC Chavez in next 1-2 days NG for now, wait until ileostomy working. They indicated that pt may need TPN in next 2-3 days if diet is not started by then. Pt and Ot re-ordered to eval. It had been anticpated that pt would be able to dc home to self care once medically stable. Cm following regarding possible dc needs.
[2020-12-09 16:20] VITALS: BP 150/89
[2020-12-09 19:26] VITALS: BP 150/85
--- NOTE | 2020-12-09 20:01 | NUR ---
Assumed pt care this am, VS signs stable. Colostomy bag draiing grenn fluid, colostomy appliance changed, ileostomy has no drainiage. Surgical incision site with eduarda c/d/i. FC in place draining yellow urine, NGT in place connect to low int suction with a significant out put. Pain is managed with medications, POC followed, mainatained NPO with some ice chips. SCD's on, Endorsed to the cloth washer operator.
--- NOTE | 2020-12-10 03:33 | NUR ---
PT IS A/O X3 WITH SOME FORGETFULNESS. ROOM AIR. SR/ST ON THE MONITOR. NG IN PLACE AND IS HOOKED UP TO INTERMITTENT SUCTION. VILLALBA IN PLACE AND DRAINNG YELLOW URINE. COLOSTOMY IN PLACE DRAINING DARK LIQUID STOOL. VSS. AFEBRILE. FALL PRECAUTIONS IN PLACE, CALL LIGHT IS WITHIN REACH
[2020-12-10 07:23] LABS: HEMATOCRIT 23.2 % (37.0-47.0); HEMOGLOBIN 7.4 gm/dL (12.0-15.0); MCH 28.8 pg (26.0-34.0); MCHC 31.9 g/dL (28.0-37.0); MCV 90.2 fL (80.0-100.0); RBC 2.57 mil/uL (4.20-5.00); RDW 16.3 % (10.5-14.5); WBC 13.1 thou/uL (4.0-11.0)
[2020-12-10 07:35] LABS: CALCIUM 8.9 mg/dL (8.5-10.1); CREATININE 2.4 mg/dL (0.6-1.0); POTASSIUM 3.2 mmol/L (3.5-5.1)
--- NOTE | 2020-12-10 11:11 | NUR ---
OSTOMY CARE; COLOSTOMY POUCH L SIDE ABD INTACT, NO OUTPUT, ILEOSTOMY STOMA R SIDE ABD RED VIABLE BUDDED W/ FAIRLY LARGE AMT LIQ BILISH STOOL, POUCH OPENING CUT TOO LARGE THEREFORE CHANGED TO CORRECT SIZE USING 2 PIECE RIDDHI CUT TO FIT APPLIANCE, ALERT, PLEASANT, COOPERATIVE, OSTOMY SUPPLIES LEFT AT BS, WILL CONT TO FOLLOW RECOMMENDATIONS; RIDDHI 2 PIECE CUT TO FIT TO ILEOSTOMY STOMA, ADAPT RING UNDER WAFER, RIDDHI ONE PIECE POUCH TO COLOSTOMY STOMA, CHANGE Q 3-5 DAYS AND PRN HEAD SUGAR REPROCESS OPERATOR AWARE COLOSTOMY, CHANGE Q 3-5 DAYS AND PN
--- NOTE | 2020-12-10 14:33 | NUR ---
PT STILL WITH NG IN PLACE WITH NEW ILIOSTOMY. PT AND OT WORKING WITH PT AND INDICATING THAT PT MAY BENEFIT FROM POST ACUTE CARE STAY. 5N CONSULTED. CM ATTEMPTED TO VISIT WITH PT AT BEDSIDE TO DISCUSS THIS BUT SHE FELL ASLEEP ON ME. CM CALLED AND SPOKE WITH PT'S SPOUSE. HE INDICATED HE WOULD BE RECEPTIVE TO CONSULT. CM FOLLOWING REGARDING DC PLANNING.
[2020-12-10 15:43] VITALS: BP 162/85
--- NOTE | 2020-12-10 19:53 | NUR ---
PT HAD 30 ML RESIDUAL FROM THE NG TUBE ALL DAY. PT NG TUBE OUT AND PUT ON CLEAR LIQUID DIET PER . PT WAS GIVEN HYDROCODONE FOR PAIN AROUND 1700. RIGHT ILEOSTOMY HAS OUTPUT AND NO OUTPUT FROM LEFT COLOSTOMY. CONTINUE TO MONITOR.
[2020-12-10 20:00] VITALS: BP 117/71
--- NOTE | 2020-12-11 06:07 | NUR ---
Assumed pt care at 1900. A/OX3,forgetful but able to make needs known. VSS. Navid in place on mid lower abd incision,ileostomy in place on RLQ with greenish output and a colostomy on LLQ with no output. Chavez patent to DD with yellow urine. No c/o N/V this shift. C/o pain to abd medicated per EMAR,with relief noted. Telemetry dc'd. Fall precautions in place,calls approp for help.
[2020-12-11 07:38] VITALS: BP 132/71
--- NOTE | 2020-12-11 13:52 | NUR ---
CARE TEAM INDICATED THAT PT IS PROGRESSING SLOWLY. PT AND OT WORKING WITH PT. 5N FOLLOWING. CM TO FOLLOW INDICATED WITH DC PLANNING.
--- NOTE | 2020-12-11 16:06 | PATH ---
[facility] [address] [place] [address] PATHOLOGY RPT PROCEDURE Name: KATHRINE HERMAN Room #: 458-P ADM IN M.R.#: [id number] Admission: 12/03/20 Date of : 56 Discharge: Report #: [id number] Path Case #: [id number] [facility] Accession Number: [id number] . 01 Material submitted: . small bowel - SEGMENT OF SMALL BOWEL HISTORY RECTAL CANCER . 01 Clinical history: . SMALL BOWEL OBSTRUCTION . 02 Diagnosis: Small bowel, segment of small bowel history of rectal cancer, resection: - METASTATIC POORLY DIFFERENTIATED SQUAMOUS CELL CARCINOMA INVADING FROM THE SEROSAL SURFACE TO THE MUCOSAL SURFACE MEASURING 2.3 CM IN GREATEST DIMENSION. - ADDITIONAL SEPARATE FOCUS OF METASTATIC POORLY DIFFERENTIATED SQUAMOUS CELL CARCINOMA MEASURING 0.7 CM IN GREATEST DIMENSION. - EXTENSIVE LYMPHVASCULAR SPACE INVASION PRESENT. - PERINEURAL INVASION PRESENT. - Margins of resection free of malignancy. - Lymph nodes showing reactive changes without any evidence of malignancy (0/8). . (IUV:julio c; 12/11/2020) QMS 12/11/2020 1257 Local . 02 Comment: Examination shows a poorly differentiated epithelioid malignancy extending from the mucosal surface to the visceral serosal surface. Extensive lymphvascular space invasion is identified within this neoplasm. Multiple properly controlled immunohistochemical stains are performed on block A6 in keeping with the provided history of rectal cancer. The tumor shows strong nuclear reactivity with p63 and strong diffuse reactivity with p16. Ki-67 shows 60% proliferative activity. The nonreactive immunohistochemical stains included CK7, CK20, synaptophysin as well as chromogranin. Special stain mucicarmine stain is performed as well on block A6 and it is negative. . Dr. Larry Paredes has seen a risk control representative slide of this case (block A6) and concurs with my diagnosis. (IUV:julio c; 12/11/2020) . 02 Electronically signed: . Vanesa Leigh MD, Pathologist NPI- [id number] . 01 Gross description: . [address] [address] PATHOLOGY RPT PROCEDURE Name: KATHRINE HERMAN Room #: 458-P [facility] IN [facility].#: [id number] Admission: 12/03/20 Date of : 56 Discharge: Report #: [id number] Path Case #: [id number] The specimen is received in formalin, labeled "Kathrine Herman, segment of small bowel, history of rectal cancer". Received is an unoriented segment of small bowel measuring 14.8 cm in length and ranges in diameter from 2.1-4.1 cm. Both margins are stapled closed. The serosal surface is pink-cruz in appearance with two serosal lesions identified, displaying a white-cruz appearance, measuring 0.7 x 0.4 and 2.2 x 0.5 cm. The smaller lesion is 5.4 cm from the closest margin and the second lesion is 8.3 cm from the closest margin. The smaller lesion is inked black and the larger lesion is inked blue. The remainder of the serosal surface is pink-lazo in appearance. The attached mesenteric fat measures up to 3.7 cm in thickness. Sectioning through the smaller lesion reveals no gross extension through the serosal wall into the mucosa. The specimen is opened along the antimesenteric line to reveal a pink-lazo, focally ulcerated mass, at the location of the second described serosal lesion, measuring 2.3 x 1.5 cm, which is 7.4 cm from the closest margin. Sectioning reveals the mass to grossly extend through the muscularis enterica and grossly abuts the inked serosal surface. This mass is 5.4 cm from the mesenteric margin. Dissection and palpation of the attached pericolic fat reveals six possible lymph node candidates ranging in size from 0.2-0.4 cm in maximum dimensions. The mesenteric fat is placed into a lymph node enhancement solution. The specimen is submitted representatively as follows: . A1 margin closest to first lesion, en face A2 opposite margin, en face A3 lesion 1, bisected (black ink) A4-A7 lesion 2, serially sectioned (blue ink) A8 uninvolved mucosa between closest margin and both lesions A9 uninvolved between furthest margin and both lesions A10 intact possible lymph node candidates. . After exposure to a lymph node enhancement solution, two additional possible lymph nodes are identified measuring 0.2 cm each. The possible lymph nodes are submitted in cassette A11. Performance Improvement Manager sections of lymphovascular bundles are submitted in cassettes A12 through A15. (CAA; 12/09/2020) QAC/QAC 12/09/2020 1715 Local . 02 Pathologist provided ICD-10: C20 . 02 CPT . 732946, J68126, R95114, 610972, 301332 Specimen Comment: A courtesy copy of this report has been sent to [phone] Specimen Comment: Report sent to Performed at: [address] [facility] [place] [address] [facility] [address], [place], [place] [id number] [facility] [address] [place] [address] PATHOLOGY RPT PROCEDURE Name: KATHRINE HERMAN Room #: 458-P ADM IN M.R.#: [id number] Admission: 12/03/20 Date of : 56 Discharge: Report #: [id number] Path Case #: [id number] MD Michael Varma MD Phone: [phone] Performed at: [address] [id number] MD Vanesa Leigh MD Phone: [phone]
[2020-12-11 19:23] VITALS: BP 137/82
--- NOTE | 2020-12-11 19:59 | NUR ---
Assumed pt care this am vs stable stayed on the recliner for most of the afternoon. Ileostomy on the LLQ abd colostomy on the RLQ (draining green fluid) FC in place draining yellow urine. Pain is managed with medications partial relief is noted. Worked with PT and OT, still weak and unsteady. Son came to visit. POC followed, endorsed to the night nurse.
[2020-12-12 08:00] VITALS: BP 123/83
--- NOTE | 2020-12-12 08:08 | NUR ---
OSTOMY CARE; AWAKE BUT FORGETFUL, SLIGHTLY CONFUSED, COULD NOT REMEMBER IF SHE ATE OR DRANK ANYTHIN YESTERDAY, COULD NOT REMEMBER IF SHE STILL HAS OSTOMY SUPPLIES AT HOME, CHANGED POUCH TO ILEOSTOMY R SIDE ABD, STOMA PINKISH/RED, VIABLE, BUDDED, PERISTOMAL SKIN INTACT, LOOSE BROWN STOOL NOTED, 2 PIECE CUT TO FIT RIDDHI POUCH APPLIED W/ ADAPT RING, COLOSTOMY STOMA L SIDE ABD W/OUT STOOL, RIDDHI ONE PIECE POUCH APPLIED, INFORMED PT OF USE OF STOMA CAP TO OLD COLOSTOMY SITE IF NO MUCOUS OR STOOL PRESENT, FAIR UNDERSTANDING, SUPPLIES LEFT AT BS, ALSO REVIEWED DIET LOW FIBER DUE TO ILEOSTOMY, SMALLER MORE FREQ MEALS, SUPPLIES PLACED AT BS, WILL CONT TO FOLLOW RECOMMENDATIONS; 2 PIECE RIDDHI CUT TO FIT POUCH TO ILEOSTOMY, ONE PIECE RIDDHI TO OLD COLOSTOMY STOMA, CHANGE Q 3-5 DAYS AND PRN, EMPTY PRN GOVERNMENT PROGRAM MANAGER AWARE
--- NOTE | 2020-12-12 14:43 | NUR ---
Rashad ASSESSED PT AND INDICATED THAT SHE WOULD BE A GOOD CANDIDATE FOR ACUTE REAHB ONCE MEDICALLY STABLE. CARE TEAM INDICATED THAT PT MAY BE MEDICALLY STABLE TO DC TOMORROW. 5N CAN ACCEPT. CM CALLED NOTIFIED PT'S OF THIS AND HE IS AWARE AND AGREEABLE WELL. CM FOLLOWING REGARDING DC PLANNING.
--- NOTE | 2020-12-12 15:32 | NUR ---
BUSINESS OFFICE TECHNOLOGY INSTRUCTOR ATTEMPTED TO SEE PATIENT FOR COGNITIVE THERAPY THIS DATE; HOWEVER PATIENT DECLINED. ST WILL ATTEMPT TO SEE PATIENT TOMORROW, 12/13/2020. THANK YOU.
[2020-12-12 16:45] VITALS: BP 141/85
--- NOTE | 2020-12-12 16:54 | NUR ---
Assumed pt care at 7am.Pt in bed resting and waiting for breakfast.Assessment completed.vss.Pt c/o generalized pain and oral pain med given with partial relief.Therapist transfered pt to chair aftr breakfast and reported that pt was unable to participate due to too much pain med in her system.Pt was up in chair for over 2hours today.Pt later transfered back to bed with max assist at after lunch.Iv pain med given per pt request.Ostomy bag emptied x2 today.Will continue to monitor.
[2020-12-12 20:03] VITALS: BP 140/76
[2020-12-13 05:18] LABS: HEMATOCRIT 22.5 % (37.0-47.0); HEMOGLOBIN 7.4 gm/dL (12.0-15.0); MCH 29.2 pg (26.0-34.0); MCHC 32.8 g/dL (28.0-37.0); MCV 89.2 fL (80.0-100.0); RBC 2.52 mil/uL (4.20-5.00); RDW 16.4 % (10.5-14.5); WBC 9.9 thou/uL (4.0-11.0)
[2020-12-13 05:23] LABS: CALCIUM 7.7 mg/dL (8.5-10.1)
--- NOTE | 2020-12-13 05:24 | NUR ---
ASSUMED CAER OF PT AT SHIFT CHANGE. PT IS AOX2-3 AND LETS NEEDS BE KNOWN. FALL PRECAUTION IN PLACE. PT REPORTED PAIN AND WAS TREATED WITH PRN PAIN MEDS. ILEOSTOMY LEAKING AND WAS REPLACED. IVF CONTINUED. PT WAS ABLE TO GET COMFORTABLE ND SLEEP PART OF THE SHIFT. VSS AND NO S/S OF ACUTE DISTRESS. WILL CONTINUE TO MONITOR.
[2020-12-13 05:27] LABS: POTASSIUM 2.6 mmol/L (3.5-5.1)
[2020-12-13 07:50] VITALS: BP 126/71
[2020-12-13] MEDS ORDERED: HYDROCODON-ACE1 EAC7 PO (13:37)
--- NOTE | 2020-12-13 13:58 | NUR ---
CARE TEAM INDICATED THAT PT IS MEDCIALLY STABLE TO DC TO [facility] ACUTE INPATIENT REHAB THIS DAY. CM SPOKE WITH PT AND SHE IS AWARE AND AGREEABLE. CM HAD NOTIFIED HER SPOUSE YESTERDAY AND HE IS ALSO AWARE AND AGREEABLE. PT TO DC TO 5N THIS DAY. NURSE TO CALL REPORT TO . NO OTHER CM INTERVENTION INDICATED. CASE CLOSED.
== END 2020-12-13 15:55 | DRG 329 ==
LOC: ER 18:14 → 4W 21:20 → EROBS 21:20 → 4W 21:58
PROVIDERS: Emergency Medicine; Nurse Practitioner Family; Surgery; ADMIT Hospitalist; ATTEND Hospitalist
PROC: 0D9670Z Drainage of Stomach with Drainage Device, Via Natural or Artificial Opening (ICD-10-PCS; principal; 2020-12-03)
PROC: 0DB80ZZ Excision of Small Intestine, Open Approach (ICD-10-PCS; 2020-12-08)
PROC: 0D1B0Z4 Bypass Ileum to Cutaneous, Open Approach (ICD-10-PCS; 2020-12-08)
DX: K56.609 Unspecified intestinal obstruction, unspecified as to partial versus complete obstruction (principal); N17.0 Acute kidney failure with tubular necrosis; G93.40 Encephalopathy, unspecified; E03.9 Hypothyroidism, unspecified; J45.909 Unspecified asthma, uncomplicated; F32.9 Major depressive disorder, single episode, unspecified; Z20.822 Contact with and (suspected) exposure to COVID-19; K21.9 Gastro-esophageal reflux disease without esophagitis; M19.90 Unspecified osteoarthritis, unspecified site; D64.9 Anemia, unspecified; E87.6 Hypokalemia; E11.42 Type 2 diabetes mellitus with diabetic polyneuropathy; R53.81 Other malaise; Z85.048 Personal history of other malignant neoplasm of rectum, rectosigmoid junction, and anus; Z85.51 Personal history of malignant neoplasm of bladder; Z88.0 Allergy status to penicillin; Z87.891 Personal history of nicotine dependence; Z92.21 Personal history of antineoplastic chemotherapy; Z92.3 Personal history of irradiation; Z90.49 Acquired absence of other specified parts of digestive tract
CPT/HCPCS: 10045; 10047; 50093; 50101; 50386; 51412; 51708; 51712; 56526; 56527; 57092; 62110; 62900; 70005

== ENCOUNTER 2020-12-13 13:16 | Inpatient (IN) | payer OTHER ==
[~2020-12-13] VITALS: Ht 167.6 cm; Wt 83.2 kg
--- NOTE | ~2020-12-13 | D ---
[facility] [place] [address] [address] [place] [address] DISCHARGE SUMMARY Name: GENIE PURVIS Room #: 504-1 [facility] IN M.R.#: [id number] Admission: 12/13/20 Attend Phys: Carlos Sam MD Discharge: 12/15/20 Date of : 56 Report #: [id number] THIS REPORT FOR: cc: Brandon Persaud MD, Douglas James MD [place],Carlos Sequeira MD ~ DATE OF SERVICE: 12/15/2020 The patient is a 60-year-old white female who had the exploratory laparotomy with small bowel resection and ileostomy. Postop, she had a toxic metabolic encephalopathy. She has a prior history of rectal cancer in 2019. Please see the full admission history and physical from 12/14/2020. HOSPITAL COURSE: I was notified by nursing this morning that the patient had left last evening against medical advice. Please see the nursing event note which helps explain the circumstances regarding the AMA discharge. The daughter took the patient home and there are plans are already in place to see a urologist and she will be making a followup appointment with the surgeon as the patient still has eduarda in place. Ostomy ____ were taken with the daughter and the daughter indicated she was comfortable with the ostomy. Noted that nursing shop supervisor was involved as well. DISCHARGE DIAGNOSES: 1. Toxic metabolic encephalopathy. 2. Right lower extremity weakness, distal more than proximal with right foot drop. This appeared to be premorbid. 3. Medical complexity with generalized debilitation. 4. Recurrent small-bowel obstruction, status post exploratory laparotomy with small bowel resection and ileostomy, 12/08/2020. 5. Acute renal insufficiency superimposed on chronic kidney disease. 6. Electrolyte abnormalities. 7. Chronic anemia. 8. Diabetes mellitus type 2. 9. History of bladder and rectal cancer. 10. Chronic obstructive pulmonary disease. 11. Gastroesophageal reflux disease. By: [id number] Carlos Sam MD /nt
--- NOTE | ~2020-12-13 | H ---
[facility] [place] [address] [address] HISTORY AND PHYSICAL Name: GENIE PURVIS Room #: 504-1 ADM IN M.R.#: [id number] Admission: 12/13/20 Attend Phys: Carlos Sam MD Discharge: Date of : 56 Report #: [id number] THIS REPORT FOR: cc: Brandon Persaud MD, Douglas James MD [place],Carlos Sequeira MD ~ DATE OF SERVICE: 12/13/2020 HISTORY OF PRESENT ILLNESS: The patient is a 60-year-old female, who was admitted for acute in-hospital inpatient rehabilitation. The patient had been initially admitted to [facility] on 12/03/2020 with complaints of nausea, vomiting and no output from her colostomy since discharged home from the hospital on 11/22/2020. She was diagnosed with C. diff on that admission. She was found to have recurrent small-bowel obstruction. General Surgery was consulted. She was kept n.p.o. and an NG tube was placed. She had low potassium and on replacement via IV. She also was noted to have acute renal insufficiency with an initial creatinine up to 3.8 with her baseline in the mid 1's. She was given IV fluids. On 12/08/2020, she underwent exploratory laparotomy with small bowel resection and ileostomy. Postop, she was noted to have confusion, disorientation, noted to have toxic metabolic encephalopathy. She has gradually improved and felt to be ready for transfer for acute in-hospital inpatient rehabilitation. PAST MEDICAL HISTORY: Includes some right lower extremity distal weakness with foot drop, which she notes is consistent with her peripheral neuropathy. She was needing to utilize a cane as well as having a walker at home. Past history also includes rectal cancer in 2019, chronic bronchitis, asthma, osteoarthritis, COPD, controlled GERD, type 2 diabetes, bladder cancer, and renal insufficiency. MEDICATIONS: Please see the full medication listing. ALLERGIES: PENICILLIN. SOCIAL HISTORY: She was living at home with her and her daughter and son-in-law live in the basement. She again has a cane and a walker at home. She was independent with ADLs, family provided IADLs. She was on disability. REVIEW OF SYSTEMS: No current complaints of chest pain, shortness of breath or abdominal discomfort. PHYSICAL EXAMINATION: GENERAL: The patient was seen on 12/13/2020. She was in no distress. VITAL SIGNS: Last recorded temperature 36.8, pulse 84, respirations 20, blood pressure 144/82. She was pleasant, definite delay in her responses, would follow one-step commands. She has decreased memory. [address] [address] HISTORY AND PHYSICAL Name: GENIE PURVIS Room #: [facility] IN M.R.#: [id number] Admission: 12/13/20 Attend Phys: Carlos Sam MD Discharge: Date of : 56 Report #: [id number] HEENT: Facies appeared to be symmetric. CHEST: Sounded clear to auscultation. CARDIAC: Regular rate and rhythm. ABDOMEN: She has ostomy in place. Obese. Bowel sounds positive. She has an indwelling Chavez catheter. NEUROMUSCULOSKELETAL: She has functional range of motion of both upper extremities with strength of grade 4-/5. In the lower extremities, she has weakness of the right ankle with an apparent foot drop and decreased sensation in a stocking distribution. She has some decreased sensation of the left lower extremity as well on large toe proprioception, but has at least a grade 4- strength of the left ankle in dorsiflexion on the left. Proximal strength is probably a grade 4-/5 to 3+/5. Functionally, she has been mod assist [id number] and ambulate a short distance mod assist. She tends to drag the right foot. It does not appear that she has an AFO or any brace to the right ankle. Again, she is a rather marginal historian. ASSESSMENT: A 60-year-old female with the following problem list: 1. Toxic metabolic encephalopathy. 2. Right lower extremity weakness, distal more than proximal with right foot drop. It appears to be premorbid. 3. Medical complexity with generalized debilitation. 4. Recurrent small-bowel obstruction, status post exploratory laparotomy with small bowel resection and ileostomy on 12/08/2020. 5. Acute renal insufficiency superimposed on chronic kidney disease. 6. Electrolyte abnormalities. 7. Chronic anemia. 8. Diabetes mellitus type 2. 9. History of bladder and rectal cancer. 10. Chronic obstructive pulmonary disease. 11. Gastroesophageal reflux disease. PLAN: The patient has been admitted for acute in-hospital inpatient rehabilitation. Please see the patient's previous and current functional status. As far as the risk of complication, she has multiple medical comorbidities as noted above. Initial plan of care involves the interdisciplinary acute inpatient rehabilitation program. Measurable functional goals would be for her to become modified independent at least maximally independent with basic transfers, mobility and ADLs and to improve with cognition, so that she can return back to the home setting. Prognosis is reasonably good with estimated length of stay probably at least 10-14 days, [facility] [address] [place] [address] HISTORY AND PHYSICAL Name: GENIE PURVIS Room #: 504-1 ADM IN .R.#: [id number] Admission: 12/13/20 Attend Phys: Carlos Sam MD Discharge: Date of : 56 Report #: [id number] potentially longer if warranted. Potential barriers would include her multiple medical comorbidities and decreased functional status. By: [id number] Carlos Sam MD /nt
[~2020-12-13 13:16] MED LIST changes: +NORCO7.5 PO; +PERCOCET 10-321 EAC1 PO
[2020-12-13] MEDS ORDERED: HYDROCODON-ACE1 EAC7 PO (13:37)
--- NOTE | 2020-12-13 16:00 | NUR ---
Assumed pt care at 7am.Pt in bed more alert and active today.Assessment completed.vss.Dr Sam here for rehab eval. Dc order noted.Received call from [facility] liason. Updates given and accepted pt for rehab admission.Pt family informed about discharge. Medicated pt with hydrocodone as needed.Pt dc to rehab around 1600 per bed.
--- NOTE | 2020-12-13 19:23 | NUR ---
Received pt from [facility], FC in place drainnig yellow urine. Colostomy and ileostomy bags in place, ileostomy draining green fluid. Pain is managed with medications, pt would be asleep 30 mins after taking oral pain meds. Mid line incision with eduarda ,c/d/i no signs of infection noted. Daughter at the bed side, right leg is weaker than the left. Pt states she does know understand why she is here and wanted to go home after [facility]. Alert and oriented x 3 and very forgetful. POC followed with no signs of distress noted. Endorsed to the night nurse.
[2020-12-13 20:00] VITALS: BP 144/82
--- NOTE | 2020-12-14 04:13 | NUR ---
assumed care approx 1900 evening 12/13. pt lying in bed with head of bed elevated resting at change of shift. bloom to dd with clear yellow urine to bag. 2 bags to abdomen intact, emptied large amt liquid stool from 1 bag, other no drainage. pt given meds with water tolerating well. pt appears to be sleeping soundly. bed alarm on and call light in reach. will continue to monitor.
[2020-12-14 04:44] LABS: CALCIUM 7.6 mg/dL (8.5-10.1); CREATININE 2.1 mg/dL (0.6-1.0); POTASSIUM 3.3 mmol/L (3.5-5.1)
[2020-12-14 04:46] LABS: MCHC 32.5 g/dL (28.0-37.0); MCV 89.2 fL (80.0-100.0); RBC 1.83 mil/uL (4.20-5.00); RDW 16.5 % (10.5-14.5); WBC 15.3 thou/uL (4.0-11.0)
[2020-12-14 04:53] LABS: HEMATOCRIT 16.3 % (37.0-47.0); HEMOGLOBIN 5.3 gm/dL (12.0-15.0)
[2020-12-14 07:24] VITALS: BP 128/77; BP 128/82; BP 132/80
[2020-12-14 12:15] LABS: HEMATOCRIT 29.7 % (37.0-47.0)
[2020-12-14 12:16] LABS: HEMOGLOBIN 9.9 gm/dL (12.0-15.0)
--- NOTE | 2020-12-14 17:33 | NUR ---
HAD ILEOSTOMY AND COLOSTOMY APPLIANCES CHANGED A FEW TIMES DUE TO UNEVEN SKIN. PATIENT HAS BEEN IN PAIN MOST OF THE DAY ASKING FOR PAIN MEDICATIONS QUITE OFTEN SOMETIMES EARLIER THAN NEXT DOSE. FAMILY HERE TO VISIT AND QUESTIONS ANSWERED. WILL CONT WITH PLAN OF CARE.
[2020-12-14 21:17] VITALS: BP 140/87
--- NOTE | 2020-12-15 00:36 | NUR ---
ileostomy bag leaking and changed by this conventional mortgage underwriter and warehouse delivery driver. pts skin with redness. bag difficult to change and required extensive amt of time from this conventional mortgage underwriter and water service supervisor to change bag. powder applied to skin and bag intact at present draining light greenish fluid with soft stool. will continue to monitor.
[2020-12-15 07:15] VITALS: BP 130/63
--- NOTE | 2020-12-15 11:10 | NUR ---
ASSUMED CARE AT 0700 TODAY. PT. IS NEEDING ATTENTION. SHE IS FORGETFUL BUT IS A&OX3 TO 4. SHE HAS A VILLALBA CATHETER, CHOLESTOMY ON HER LEFT SIDE AND A ILLIOSTOMY ON HER RT. SIDE. SHE HAS A NS LOCK TO HER LFA. SHE OFTEN ASKS FOR THINGS . HER MIDLINE INCISION IS C/D/I. HER AM BLOOD SUGAR WAS 99. SHE IS PLEASANT WITH STAFF. SHE HAS NOT ASKED FOR ANY PAIN MEDICATIONS OF THIS WRITING. SHE TOOK HER MORNING MEDICATIONS WITHOUT PROBLEMS NOTED. WILL CONTINUE TO MONITOR.
--- NOTE | 2020-12-15 20:25 | NUR ---
TAKING 2100 MEDS INTO PATIENT ROOM, PATIENT DRESSED AND UP IN WHEELCHAIR. DAUGHTER MARIO IN ROOM REQUESTING SALINE LOCK REMOVAL. OBJECTION THAT SHE MIGHT NEED IT. DAUGHTER SAYS "NO, SHE WON'T BECAUSE SHE'S GOING HOME" "I AM HER DPOA AND I'M TAKING HER HOME WITH ME" PATIENT DID NOT DISAGREE AND NOTES THAT SHE HAS CANCER AND IS TIRED OF FIGHTING. DAUGHTER STATES THERE WERE AND ARE ALREADY PLANS TO SEE AN UROLOGIST IN THEIR OFFICE AND SHE WILL BE CALLING DR DALLAS'S OFFICE TO ARRANGE SURGICAL FOLLOW UP. PATIENT WILL GO HOME WITH VILLALBA AND CECIL INTACT AND COLOSTOMY AND ILEOSTOMY APPLIANCES PATENT WITH A BOX CONTAINING APPLIANCE TO REPLACE. MARIO STATES SHE IS COMFORTABLE WITH OSTOMY. SOCIAL ORGANIZATION PROFESSOR PAGED TO CLARIFY AMA PROCESS. DAUGHTER AND PATIENT TOLD ME "NOT TO TAKE IT PERSONAL" AND WERE PLEASANT DURING ENTIRE DISCUSSION
--- NOTE | 2020-12-15 20:45 | NUR ---
CHEPE WITH HOSPITAL GROUP INFORMED OF AMA MESSAGE LEFT FOR DR COPELAND CONCERNING AMA ELPIDIO INFORMED BY [facility] MANAGER TRAINING AND DEVELOPMENT DR DALLAS INFORMED OF AMA AND TO EXPECT DAUGHTER TO MAKE AN SURGERY FOLLOW-UP APPOINTMENT BECAUSE SHE STILL HAS CECIL. DR DALLAS KNOWS THE PATIENT AND WAS SUPRISED SHE WAS LEAVING SO SOON DAUGHTER TOOK PATIENT AND SUPPLIES IN WHEELCHAIR
--- NOTE | 2020-12-15 20:46 | NUR ---
This nurse was called to the floor by KRISTIN Barboza regarding the patient requesting to leave AMA. After speaking at length with the daughter and patient, they remained adamant about leaving. The patient stated she was in a lot of pain, had cancer, wanted to stop treatment and go home. The daughter mentioned that she was upset with some aspects of her care. She stated her mother's pain medication was given 1.5 hours late and when she was visiting a day ago her mother was "covered in feces." She also stated she was unhappy with the way some of the staff moved her mother. Risks of leaving were thoroughly explained to both, explained that they would need to follow up with her PCP and surgeon Wednesday morning. IV was removed, bloom catheter remained as the patient has a chronic catheter. Nurse qc manager, Kiera, notified by this RN. Physicians notified per primary RNJabari.
== END 2020-12-15 20:35 | disposition left against medical advice (07) | DRG 92 ==
PROVIDERS: Nurse Practitioner Family; ADMIT Physical Medicine & Rehabilitation; ATTEND Physical Medicine & Rehabilitation
PROC: 30233N1 Transfusion of Nonautologous Red Blood Cells into Peripheral Vein, Percutaneous Approach (ICD-10-PCS; principal; 2020-12-14)
DX: G92 Toxic encephalopathy (principal); N17.9 Acute kidney failure, unspecified; D62 Acute posthemorrhagic anemia; R53.81 Other malaise; J44.9 Chronic obstructive pulmonary disease, unspecified; K21.9 Gastro-esophageal reflux disease without esophagitis; E11.22 Type 2 diabetes mellitus with diabetic chronic kidney disease; E03.9 Hypothyroidism, unspecified; M19.90 Unspecified osteoarthritis, unspecified site; F32.9 Major depressive disorder, single episode, unspecified; E11.42 Type 2 diabetes mellitus with diabetic polyneuropathy; E86.0 Dehydration; E87.6 Hypokalemia; Z53.29 Procedure and treatment not carried out because of patient's decision for other reasons; D63.8 Anemia in other chronic diseases classified elsewhere; N18.2 Chronic kidney disease, stage 2 (mild); Z85.048 Personal history of other malignant neoplasm of rectum, rectosigmoid junction, and anus; Z85.51 Personal history of malignant neoplasm of bladder; Z88.0 Allergy status to penicillin; Z93.2 Ileostomy status; Z90.710 Acquired absence of both cervix and uterus
CPT/HCPCS: 10112